=== PATIENT | female | born 1975 | race Caucasian/White ===

== ENCOUNTER 2023-01-04 15:13 | Emergency (ER) | payer OTHER ==
[2023-01-04 15:37] VITALS: BP 143/89; PULSE 93; RESP 18; TEMP 97.7; BMI 39.9
[2023-01-04 15:48] LABS: HCG,QUALITATIVE URINE Negative
[2023-01-04 16:36] LABS: INR 1.01 (0.83-1.09); PROTHROMBIN TIME (PATIENT) 11.7 SEC (9.7-13.0)
[2023-01-04 16:37] LABS: HEMOGLOBIN 12.7 G/dL (10.7-15.3); MCH 28.1 pg (25.7-33.7); MCHC 33.5 g/dl (32.0-36.0); MEAN CELL VOLUME 83.7 fl (80-96); PLATELET COUNT 375.8 10^3/uL (134-434); RBC 4.54 10^6/uL (3.60-5.2); RDW 14.9 % (11.6-15.6); WHITE BLOOD COUNT 10.5 10^3/uL (4.0-10.8)
[2023-01-04 16:38] LABS: ACTIVATED PTT 31.3 SECONDS (25.2-36.5)
[2023-01-04 16:39] LABS: EPITHELIAL CELLS FEW /hpf
[2023-01-04 16:48] LABS: ALBUMIN 4.2 g/dl (3.4-5.0); BLOOD UREA NITROGEN 11.8 mg/dl (7-18); CALCIUM 9.4 mg/dl (8.5-10.1); CREATININE 0.7 mg/dl (0.6-1.3); POTASSIUM 4.1 mmol/L (3.5-5.1); SGOT/AST 17.5 U/L (15-37); SGPT/ALT 15.7 U/L (7-52)
[2023-01-04 17:51] LABS: ANISOCYTOSIS 1+; PLATELET ESTIMATE ADEQUATE
[2023-01-04 18:43] LABS: BILIRUBIN,TOTAL 0.2 mg/dL (0.2-1)
== END 2023-01-04 17:20 | disposition home or self-care (01) ==
LOC: FER 15:13
DX: N93.9 Abnormal uterine and vaginal bleeding, unspecified (principal); R42 Dizziness and giddiness
CPT/HCPCS: 36415; 76830-TC; 80053; 81003; 81015; 84703; 85027; 85610; 85730; 86850; 86900; 86901; 99284-25